=== PATIENT | female | born 1990 | race Caucasian/White ===

== ENCOUNTER 2020-03-24 14:04 | Emergency (ER) | payer OTHER, SELFPAY ==
--- NOTE | 2020-03-24 14:15 | ED.URI ---
HPI - URI/Sore Throat General Chief Complaint: Upper Respiratory Infection Stated Complaint: Sore throat Time Seen by Provider: 03/24/20 14:10 Source: patient and RN notes reviewed Mode of arrival: ambulatory Limitations: no limitations History of Present Illness HPI Narrative: 30-year-old female presents with concern for sore throat. Reports she had a mild sore throat last night, and a mild sore throat this morning. Reports she is currently staying at a rehab facility and gets her temperature checked daily. Reports she had a 99.9 temperature and they required she be seen to have a negative influenza and strep test. Reports she has a cover test scheduled for Friday. Reports when she was admitted to the facility she had a negative coronavirus test. Denies taking any medications for symptoms. She denies cough, shortness of breath, fatigue, body aches. Reports postnasal drip. MD elicited complaint: sore throat Related Data Home Medications Medication Instructions Recorded Confirmed aripiprazole [Abilify] 2 mg PO HS 09/28/19 09/28/19 clonazepam 0.5 mg PO BID PRN 09/28/19 09/28/19 Prozac 03/24/20 chlordiazepoxide HCl 03/24/20 hydroxyzine pamoate 03/24/20 quetiapine 03/24/20 quetiapine 03/24/20 Allergies Allergy/AdvReac Type Severity Reaction Status Date / Time No Known Allergies Allergy Verified 09/28/19 19:05 Review of Systems Review of Systems: Narrative: CONSTITUTIONAL: Denies malaise, chills, sweats. Reports low-grade fever. EYES: Denies visual changes, redness, or discharge. ENT: Denies rhinorrhea, congestion, sinus pain, otalgia. Reports postnasal drip and sore throat. CARDIOVASCULAR: Denies chest pain, palpitations, or edema. RESPIRATORY: Denies cough or dyspnea. GASTROINTESTINAL: Denies abdominal pain, nausea, vomiting, diarrhea SKIN: Denies rash or itching. MUSCULOSKELETAL: Denies myalgia. NEUROLOGIC: Denies headache. All systems reviewed & are unremarkable except as noted in HPI and below PMFSH Past Medical History Medical History (Updated 03/24/20 @ 14:49 by Sharlene Luis NP) Anxiety Depression Endometriosis Comments At time of signature, agree with nursing past medical, surgical, social and family history. There is no relevant family history pertinent to the presenting complaint Exam Narrative: Exam Narrative: GENERAL: Well-appearing, well-nourished, and in no acute distress. HEAD: Normocephalic EYES: PERRLA, conjunctivae clear ENT: Nares clear, turbinates erythematous, clear discharge. Mucous membranes moist. TM pearly prince with sharp light reflex bilaterally; no tragal tenderness. Oropharynx not erythematous without lesions. Tonsils not enlarged and without exudate, no drooling, no hoarseness, no trismus, uvula midline. NECK: Supple. No lymphadenopathy CHEST: Clear to auscultation, breath sounds equal. No wheezing, rhonchi, rales, or stridor. No respiratory distress, speaks in full sentences. HEART: Regular rate and rhythm. No murmur heard. SKIN: Warm, dry, no rash. NEURO: Alert and oriented x3. PSYCH: Normal mood and affect Course Course Emergency Course: Patient is aware of diagnosis, understands and agrees to treatment plan. Anticipatory guidance given. Patient agrees to follow-up as directed and is aware of reasons to seek care at the emergency department. Portions of this record may have been created with voice recognition software Vital Signs Vital signs: Vital Signs Temperature 98.4 F 03/24/20 14:16 Pulse Rate 98 03/24/20 14:16 Respiratory Rate 16 03/24/20 14:16 Blood Pressure 135/73 03/24/20 14:16 Pulse Oximetry 100 03/24/20 14:16 Temperature 98.4 F 03/24/20 14:16 Pulse Rate 98 03/24/20 14:16 Respiratory Rate 16 03/24/20 14:16 Blood Pressure 135/73 03/24/20 14:16 Pulse Oximetry 100 03/24/20 14:16 Reviewed. Patient has been instructed to follow up with her primary care provider within the next week regarding her elevated blood pr
[2020-03-24 14:16] VITALS: BP 135/73; PULSE 98; RESP 16; TEMP 36.9; O2SAT 100
== END 2020-03-24 14:53 | disposition home or self-care (01) ==
PROVIDERS: Emergency Provider Nurse Practitioner
DX: J02.9 Acute pharyngitis, unspecified (principal); F41.9 Anxiety disorder, unspecified; F32.9 Major depressive disorder, single episode, unspecified
CPT/HCPCS: 87081; 87804; 87880; 99213; G0463

== ENCOUNTER 2020-04-30 02:17 | Emergency (ER) | payer OTHER, SELFPAY ==
[2020-04-30 02:20] VITALS: BP 132/86; PULSE 99; RESP 19; TEMP 36.4; O2SAT 100
--- NOTE | 2020-04-30 03:21 | ED.EXTPRO ---
HPI - Extremity Problem General Chief complaint: Extremity Problem,Nontraumatic Stated complaint: finger infection Time Seen by Provider: 04/30/20 02:50 History of Present Illness HPI Narrative: Patient is a 30-year-old female who presents ER with right second digit pain. She reports over the middle phalanx of the radial aspect of the digit she started having pain and swelling in the early hours this morning. Her mom tried to open it with a needle because they thought a splinter was stuck in there. Patient reports yesterday she was attacked by her cat because he got scared by a dog and it scratched her. She does not think that it bit her. She was able to drain pus out of the area today. She has mild limitation in flexion at the PIP due to pain. There is lymphangitic streaking up to the mid forearm. No fevers or chills or sweats. Related Data Home Medications Medication Instructions Recorded Confirmed aripiprazole [Abilify] 2 mg PO HS 09/28/19 09/28/19 clonazepam 0.5 mg PO BID PRN 09/28/19 09/28/19 Prozac 03/24/20 chlordiazepoxide HCl 03/24/20 hydroxyzine pamoate 03/24/20 quetiapine 03/24/20 quetiapine 03/24/20 Allergies Allergy/AdvReac Type Severity Reaction Status Date / Time No Known Allergies Allergy Verified 09/28/19 19:05 Review of Systems Constitutional: Constitutional: Denies chills, Denies fever(s) and Denies weakness Musculoskeletal: Comments: Finger pain Integumentary/Breasts: Skin/Breast: Reports erythema and Reports skin ulcer Neurologic: Denies focal weakness and Denies numbness PMFSH Past Medical History Medical History (Updated 04/30/20 @ 03:25 by Antonio Bravo MD) Anxiety Depression Endometriosis Surgical History Surgical History (Updated 04/30/20 @ 03:23 by Antonio Bravo MD) No pertinent past surgical history Social History Social History Gender identity (if verbalized by the patient): Female Exam Narrative: Exam Narrative: GENERAL: Well-appearing, well-nourished, and in no acute distress. HEAD: Normocephalic, atraumatic. EXTREMITIES: Normal range of motion. No edema. SKIN: Warm, dry, small open wound to the radial aspect of the second digit over the middle phalanx. Seems to have clear fluid draining from it but patient reports pus earlier. Lymphangitic streaking to mid forearm. NEURO: Alert and oriented x3. PSYCH: Normal mood and affect. Course Course Emergency Course: Augmentin here. Discharge with pain medication additional antibiotic. Concern for cat bite with secondary infection. Patient believes her cat is immunized. Patients tetanus is not up to date because she does not believe in vaccinations. Vital Signs Vital signs: Vital Signs Temperature 97.6 F 04/30/20 02:20 Pulse Rate 99 04/30/20 02:20 Respiratory Rate 19 04/30/20 02:20 Blood Pressure 132/86 04/30/20 02:20 Pulse Oximetry 100 04/30/20 02:20 Temperature 97.6 F 04/30/20 02:20 Pulse Rate 99 04/30/20 02:20 Respiratory Rate 19 04/30/20 02:20 Blood Pressure 132/86 04/30/20 02:20 Pulse Oximetry 100 04/30/20 02:20 Discharge Plan Discharge Clinical Impression: Cat bite of index finger, Cellulitis Patient Disposition: Home, Self-Care Condition: Stable Instructions: Antibiotic Form, Animal Bite (ED), Cellulitis (ED) Additional Instructions: Return to the ER if you have increased pain and swelling, you have fever over 100.4 ?F, you cannot move your finger, you have additional concerns. Prescriptions: New hydrocodone-acetaminophen 5-325 mg tablet 1 tablet PO Q6H PRN (Reason: pain) Qty: 12 RF: 0 amoxicillin-pot clavulanate 875-125 mg tablet 1 tablet PO Q12H Qty: 20 RF: 0 No Action clonazepam 0.5 mg Tablet 0.5 mg PO BID PRN (Reason: Anxiety) RF: 0 aripiprazole [Abilify] 2 mg Tablet 2 mg PO HS RF: 0 quetiapine 25 mg tablet RF: 0 quetiapine 100 m
[2020-04-30 03:38] VITALS: BP 127/84; PULSE 80; RESP 19; TEMP 36.7; O2SAT 100
[2020-04-30] MEDS: AMOXICILLIN/CLAVULANATE K 875-125 MG TAB 1 TABLET PO (03:38)
== END 2020-04-30 03:43 | disposition home or self-care (01) ==
PROVIDERS: Emergency Provider Emergency Medicine
DX: S61.250A Open bite of right index finger without damage to nail, initial encounter (principal); L03.011 Cellulitis of right finger; F41.9 Anxiety disorder, unspecified; F32.9 Major depressive disorder, single episode, unspecified; N80.9 Endometriosis, unspecified; W55.01XA Bitten by cat, initial encounter
CPT/HCPCS: 99283; A9270

== ENCOUNTER 2020-08-15 00:30 | Outpatient (CLI) | payer OTHER, SELFPAY ==
[2020-08-15 18:51] LABS: SARS-CoV-2 RNA PCR Negative
== END 2020-08-15 00:31 | disposition home or self-care (01) ==
LOC: ANHCOVIDDT 00:30
PROVIDERS: PCP Emergency Medicine; Visit Provider Obstetrics & Gynecology
DX: Z01.818 Encounter for other preprocedural examination (principal); Z20.828 Contact with and (suspected) exposure to other viral communicable diseases
CPT/HCPCS: 87635; C9803; U0003

== ENCOUNTER 2020-09-28 12:04 | Emergency (ER) | payer OTHER, SELFPAY ==
[2020-09-28 12:16] VITALS: BP 129/97; PULSE 97; RESP 18; TEMP 37.1; O2SAT 100
[2020-09-28 12:17] VITALS: BP 129/97; PULSE 97; RESP 18; TEMP 37.1; O2SAT 100
--- NOTE | 2020-09-28 12:20 | ED.DENTAL ---
HPI - Dental/Oral General Chief complaint: Dental/Oral Stated complaint: tooth pain Source: patient Mode of arrival: ambulatory Limitations: no limitations History of Present Illness HPI Narrative: 30-year-old female presents to [facility] with complaints of pain to right upper and left upper tooth the past 3 to 4 days. Patient has been taking [id number] ibuprofen and Tylenol with minimal relief. Patient denies fever, bodies, chills, vomiting or diarrhea. 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 MD Complaint: tooth pain Teeth map: 1. pain, erythema 2. pain, erythema Onset (ago): day(s) (3) Duration: constant Exacerbating factors: nothing Treatment prior to arrival: other ([id number] Motrin and Tylenol) Related Data Home Medications Medication Instructions Recorded Confirmed fluoxetine 40 mg PO DAILY 08/14/20 08/14/20 gabapentin 100 mg PO DAILY PRN 08/14/20 08/14/20 hydroxyzine pamoate 50 mg PO PRN PRN 08/14/20 08/14/20 quetiapine 25 mg PO BID 08/14/20 08/14/20 quetiapine 100 mg PO HS 08/14/20 08/14/20 Allergies Allergy/AdvReac Type Severity Reaction Status Date / Time No Known Allergies Allergy Verified 08/14/20 12:49 Review of Systems Constitutional: Constitutional: Denies chills, Denies fever(s) and Denies weakness ENT: Denies dysphagia, Denies dizziness, Denies epistaxis, Denies nasal congestion and Denies sore throat Comments: Dental pain Cardiovascular: Cardiovascular: Denies chest pain, Denies rapid heart rate, Denies radiating jaw, neck or arm pain and Denies slow heart rate Gastrointestinal: Gastrointestinal: Denies abdominal pain, Denies constipation, Denies diarrhea, Denies nausea and Denies vomiting Integumentary/Breasts: Skin/Breast: Denies pruritus, Denies rash and Denies skin ulcer Neurologic: Denies dizziness, Denies headache(s), Denies focal weakness, Denies numbness and Denies weakness PMFSH Past Medical History Medical History Anxiety Depression Endometriosis Surgical History Surgical History No pertinent past surgical history Social History Social History Smoking status: Light tobacco smoker Tobacco type: e-cigarettes/vaping Second hand tobacco smoke exposure: No Smoking end date: 09/08/17 Gender identity (if verbalized by the patient): Female Spiritual care concerns: No Comments At time of signature, I agree with nursing past medical, surgical, social and family history. There is no relevant family history pertinent to the presenting complaint. Exam Const: General: healthy appearing, no acute distress and alert Orientation/consciousness: patient oriented x3 HENMT: Head: normal to inspection Mouth: Yes lip normal and Yes moist mucous membranes Teeth and gingiva: abnormal tooth and associated gingiva (pain, mild swelling and erythema noted to upper teeth#4 and #13. ) Throat: uvula midline Other: There is no dental abscess noted. There are veneers in place to front teeth. Resp: Effort & Inspection: normal respiratory effort, not labored and not tachypneic Auscultation: clear to auscultation bilaterally Cardio: Rate: regular rate, not bradycardic and not tachycardic Rhythm: regular rhythm and regular rhythm Heart sounds: no murmurs Skin: General skin exam: normal color Rashes: no rashes Wounds: no wounds Neuro: General: patient oriented x3, moves all extremities and no meningeal signs Psych: Appearance: grossly normal Mental Status: mental status grossly normal Affect: normal affect Attitude: cooperative Thought content: Yes Normal thought content present Course Vital Signs Vital signs: Vital Signs Temperature 37.1 C 09/28/20 12:16 Pulse Rate 97 09/28/20 12:16 Respiratory Rate 18 09/28/20 12:16 Blood
== END 2020-09-28 12:35 | disposition home or self-care (01) ==
PROVIDERS: Emergency Provider Nurse Practitioner Family
DX: K08.89 Other specified disorders of teeth and supporting structures (principal); F41.9 Anxiety disorder, unspecified; F32.9 Major depressive disorder, single episode, unspecified; N80.9 Endometriosis, unspecified
CPT/HCPCS: 99213; G0463

== ENCOUNTER 2021-03-20 15:42 | Emergency (ER) | payer OTHER, SELFPAY ==
[2021-03-20 15:51] VITALS: BP 125/86; PULSE 96; RESP 18; TEMP 36.7; O2SAT 100
[2021-03-20 16:01] VITALS: BP 125/86; PULSE 96; RESP 18; TEMP 36.7; O2SAT 100
--- NOTE | 2021-03-20 16:05 | ED.GENADULT ---
HPI - General Adult General Chief complaint: Dental/Oral Stated complaint: swollen face Time Seen by Provider: 03/20/21 15:51 History of Present Illness HPI narrative: 31 yo female presents to the [facility] with C/O left sided facial swelling that has been going on since around 23 January. Has seen her primary care 3 times and prescribed 3 different antibiotics. Patient states that the last round of antibiotics was prescribed 07 March, took a couple of days and because she felt better stopped taking them. Started taking them again a couple of days ago and the swelling and pain keeps getting worse. Unable to eat. Denies fevers, chest pain, abdominal pain. Related Data Home Medications Medication Instructions Recorded Confirmed quetiapine 100 mg PO HS 08/14/20 03/20/21 clonidine HCl 0.1 mg PO DAILY 03/20/21 03/20/21 tizanidine 4 mg PO PRN PRN 03/20/21 03/20/21 vortioxetine [Trintellix] 10 mg PO DAILY 03/20/21 03/20/21 Allergies Allergy/AdvReac Type Severity Reaction Status Date / Time No Known Allergies Allergy Verified 03/20/21 15:47 Review of Systems Review of Systems: All systems reviewed & are unremarkable except as noted in HPI and below Constitutional: Constitutional: Reports no additional constitutional complaints, Denies chills and Denies fever(s) Eyes: Eyes: Reports no additional eye complaints ENT: Reports as per HPI Comments: Left-sided facial pain and swelling, unable to eat Cardiovascular: Cardiovascular: Reports no additional cardiovascular complaints and Denies chest pain Respiratory: Respiratory: Reports no additional respiratory complaints, Denies cough and Denies dyspnea Gastrointestinal: Gastrointestinal: Reports no additional gastrointestinal complaints Musculoskeletal: Musculoskeletal: Reports no additional musculoskeletal complaints Integumentary/Breasts: Skin/Breast: Reports as per HPI and Reports erythema (Left facial/jaw) Neurologic: Reports system reviewed and no additional complaints, except as documented, Denies vertigo, Denies dizziness, Denies syncope and Denies headache(s) Psychiatric: Psychiatric: Reports no additional psychiatric complaints Allergic/Immunologic: Allergic/Immunologic: Reports no additional allergic/immunologic complaints PMFSH Past Medical History Medical History Anxiety Depression Endometriosis Surgical History Surgical History No pertinent past surgical history Social History Social History Smoking status: Light tobacco smoker Tobacco type: e-cigarettes/vaping Second hand tobacco smoke exposure: No Smoking end date: 09/08/17 Gender identity (if verbalized by the patient): Female Spiritual care concerns: No Comments At the time of my signature, I reviewed and agree with the nursing past medical, surgical, social, and family history. There is no relevant family history pertinent to the patient complaint. Exam Const: General: alert and ill appearing acutely Nutritional Appearance: well nourished Orientation/consciousness: patient oriented x3 Limitations: no limitations Other: Appears in pain HENMT: Head: normal to inspection Ears: hearing grossly normal bilaterally, external ears normal, TM's normal bilaterally and EAC's normal General nose exam: Normal external nose present, Normal nares present and Normal nasal mucous membranes and turbinates present Face and sinus: erythema on the left mandible, submandibular and angle of jaw, fluctuance (Mandible, mastoid, angle of jaw) and Facial tenderness on exam of face and sinuses on the left mandible, submandibular and angle of jaw Mouth: Yes Normal oral and palatal mucosa present, Yes lip normal, Yes tongue normal and Yes moist mucous membranes Teeth and gingiva: other (Multiple cosmetic dental procedures.) Eyes: Conjunctivae: conjunctivae normal Pu
== END 2021-03-20 16:15 | disposition short-term general hospital (02) ==
PROVIDERS: Emergency Provider Nurse Practitioner; PCP Nurse Practitioner Family
DX: R22.0 Localized swelling, mass and lump, head (principal); F41.9 Anxiety disorder, unspecified; F32.9 Major depressive disorder, single episode, unspecified; N80.9 Endometriosis, unspecified
CPT/HCPCS: 99212; G0463

== ENCOUNTER 2021-08-12 18:36 | Emergency (ER) | payer OTHER, SELFPAY ==
[2021-08-12 19:39] VITALS: BP 137/100; PULSE 97; RESP 18; TEMP 36.3; O2SAT 98
[2021-08-12 20:27] LABS: Add Urine Microscopic? YES; Appearance Urine Cloudy (Clear); Bilirubin Urine Negative (Negative); Blood Urine Negative (Negative); Color Urine Yellow (Yellow); Glucose Urine UA Negative (Negative); Ketones Urine Trace mg/dL (Negative); Leukocyte Esterase Ur Negative LEU/UL (Negative); Mucus Urine Heavy /lpf; Nitrate Urine Negative (Negative); Protein Urine Negative (Negative); Specific Grav Ur 1.026 (1.001-1.035); Squamous Epithelial Cell Urine Many /hpf (Few); Urobilinogen Urine Negative mg/dL (<2.0); WBC Urine 0-3 /hpf
--- NOTE | 2021-08-12 20:54 | ED.GENADULT ---
HPI - General Adult General Chief complaint: Unspecified Stated complaint: i think i have an infection in my fingers Time Seen by Provider: 08/12/21 20:02 Source: patient History of Present Illness HPI narrative: Patient presents with multiple complaints. Reports she had her nails done and since then redness on the tips of her fingers that is painful so she is concerned for a infection on her finger. She also reports she had been taking reports with a partner a couple days ago has had vaginal irritation since then as well as white discharge. She denies urinary symptoms denies any fevers denies any vomiting or chest pain. Related Data Home Medications Medication Instructions Recorded Confirmed quetiapine 100 mg PO HS 08/14/20 03/20/21 clonidine HCl 0.1 mg PO DAILY 03/20/21 03/20/21 tizanidine 4 mg PO PRN PRN 03/20/21 03/20/21 vortioxetine [Trintellix] 10 mg PO DAILY 03/20/21 03/20/21 Allergies Allergy/AdvReac Type Severity Reaction Status Date / Time No Known Allergies Allergy Verified 08/12/21 19:45 Review of Systems Review of Systems: CONSTITUTIONAL: Denies fever, chills, or sweats. EYES: Denies visual changes, redness, or discharge. ENT: Denies rhinorrhea, congestion, sore throat, or otalgia. CARDIOVASCULAR: Denies chest pain, palpitations, or edema. RESPIRATORY: Denies cough or dyspnea. GASTROINTESTINAL: Denies abdominal pain, nausea, vomiting, or diarrhea. GENITOURINARY: Denies dysuria or hematuria. SKIN: Denies rash or itching. MUSCULOSKELETAL: Denies back pain, joint pain, or myalgia. NEUROLOGIC: Denies headache, numbness, dizziness, or weakness. PSYCHIATRIC: Denies anxiety or depression. All systems reviewed & are unremarkable except as noted in HPI and below PMFSH Past Medical History Medical History Anxiety Depression Endometriosis Surgical History Surgical History No pertinent past surgical history Social History Social History Smoking status: Light tobacco smoker Tobacco type: e-cigarettes/vaping Second hand tobacco smoke exposure: No Smoking end date: 09/08/17 Gender identity (if verbalized by the patient): Female Spiritual care concerns: No Exam Narrative: GENERAL: Well-appearing, well-nourished, and in no acute distress. HEAD: Normocephalic, atraumatic. EYES: PERRLA and EOMI. ENT: Nares clear, no rhinorrhea or epistaxis. Mucous membranes moist. NECK: Supple. No masses. No JVD ABDOMEN: Soft, nontender, nondistended, normal active bowel sounds. EXTREMITIES: Normal range of motion. No edema. 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 Her exam is unremarkable there are no ulcerations lymphadenopathy or or pustules on external exam. Speculum exam was with dark loose discharge in the vaginal vault with additional right thick discharge. SKIN: Warm, dry, no rash. NEURO: No focal deficits. Alert and oriented x3. PSYCH: Normal mood and affect. Course Vital Signs Vital signs: Vital Signs Temperature 36.3 C L 08/12/21 19:39 Pulse Rate 97 08/12/21 19:39 Respiratory Rate 18 08/12/21 19:39 Blood Pressure 137/100 H 08/12/21 19:39 Pulse Oximetry 98 08/12/21 19:39 Temperature 36.3 C L 08/12/21 19:39 Pulse Rate 98 08/12/21 21:40 Respiratory Rate 18 08/12/21 21:40 Blood Pressure 137/97 H 08/12/21 21:40 Pulse Oximetry 98 08/12/21 21:40 Medical Decision Making [facility] Narrative Medical decision making narrative: H&P as above, vss, pt looks clinically well, exam vaginal discharge on exam and possible early paronychia versus cellulitis on third digit left hand, labs unremarkable, additional labs/img considered, symptomatic relief available as needed, on reevaluation pt continu
[2021-08-12 21:07] LABS: Pregnancy On Board Control Positive; Urine Pregnancy Test Negative
[2021-08-12] MEDS: IBUPROFEN 600 MG TABLET PO (21:18)
[2021-08-12] MEDS: cefTRIAXone 1 GM VIAL 0.5 GM IM (21:20)
[2021-08-12] MEDS: LIDOCAINE HCL 1% LOCAL INJ 20 ML VIAL (21:20)
[2021-08-12 21:40] VITALS: BP 137/97; PULSE 98; RESP 18; O2SAT 98
== END 2021-08-12 21:40 | disposition home or self-care (01) ==
PROVIDERS: Emergency Provider Emergency Medicine; PCP Nurse Practitioner Family
DX: N89.8 Other specified noninflammatory disorders of vagina (principal); L03.012 Cellulitis of left finger; F41.9 Anxiety disorder, unspecified; F32.9 Major depressive disorder, single episode, unspecified; N80.9 Endometriosis, unspecified
CPT/HCPCS: 81001; 81025; 87070; 87491; 87591; 87808; 96372; 99284; A9270; J0696

== ENCOUNTER 2023-04-10 11:20 | Emergency (ER) | payer OTHER, SELFPAY ==
--- NOTE | ~2023-04-10 | XR_ITS ---
EXAMINATION: XR chest 2V DATE: 04/10/2023 11:54 INDICATION: Pain and protrusion at the right upper anterior chest wall TECHNIQUE: PA and lateral views of the chest were obtained. COMPARISON: Chest radiograph dated 08/11/2005 FINDINGS: The lungs remain clear with no focal airspace opacities, pulmonary edema, pleural effusion or pneumot horax. The cardiomediastinal silhouette is normal. 19 degrees thoracic dextroscoliosis. IMPRESSION: 1. No acute cardiopulmonary disease. Reviewed, dictated and finalized at location A.
--- NOTE | 2023-04-10 11:25 | ECG_ITS ---
Measurements Intervals [place] Rate: 61 P: 71 LA: 110 QRS: 56 QRSD: 85 T: 43 QT: 431 QTc: 437 Interpretive Statements SINUS RHYTHM WITH SHORT LA INTERVAL WITHIN NORMAL LIMITS NO PREVIOUS ECG AVAILABLE FOR COMPARISON Electronically Signed On 04-11-2023 12:44:02 CDT by William Cobian M.D.
[2023-04-10 11:46] LABS: Basophils Percent Auto 0.7 % (0.2-1.2); Eosinophils Percent Auto 0.7 % (0-4.4); Hematocrit 39.1 % (37.0-47.0); Hemoglobin 13.1 g/dL (12.0-15.0); Immature Granulocyte Absolute 0.01 K/mm3 (0.00-0.031); Immature Granulocyte Percent A 0.2 % (0-0.5); Lymphocytes Absolute Auto 1.84 K/mm3 (0.9-3.2); Lymphocytes Percent Auto 31.7 % (18.3-44.2); Mean Corpuscular HGB Conc 33.5 g/dl (32-36); Mean Corpuscular Volume 89.7 fl (80-100); Mean Platelet Volume 8.9 fl (7.4-10.4); Monocytes Absolute Auto 0.4 K/mm3 (0.1-0.6); Monocytes Percent Auto 6.4 % (2.6-8.5); Neutrophils Absolute Auto 3.5 K/mm3 (1.3-6.7); Neutrophils Percent Auto 60.3 % (45.5-73.1); Platelet Count Result 309 k/mm3 (150-375); Red Blood Count 4.36 M/mm3 (4.2-5.4); Red Cell Distribution Width 12.5 % (11.5-14.5); White Blood Count 5.8 K/mm3 (4.5-10.0)
[2023-04-10 11:55] VITALS: BP 125/89; PULSE 86; RESP 16; TEMP 36.1; O2SAT 100
[2023-04-10 11:55] LABS: Alanine Aminotransferase 19 U/L (6-35); Albumin Level 4.5 g/dL (3.5-5.1); Alkaline Phosphatase 68 U/L (38-126); Anion Gap 6 mmol/L (8-16); Aspartate Amino Transferase 26 U/L (14-36); Bilirubin,Total 0.4 mg/dL (0.2-1.3); Blood Urea Nitrogen 12 mg/dL (7-17); Calcium 8.7 mg/dL (8.4-10.2); Carbon Dioxide 30 mmol/L (22-30); Chloride 102 mmol/L (98-107); Estimated Glomerular Filt Rate > 60; Glucose 73 mg/dL (65-110); Lipase 164 U/L (23-300); Potassium 3.3 mmol/L (3.4-5.0); Sodium 138 mmol/L (137-145)
[2023-04-10 11:58] LABS: INR 0.9; Partial Thromboplastin Time 27.2 SECONDS (22.3-36.8); Prothrombin Time 12.7 Seconds (11.1-14.7)
[2023-04-10 12:07] LABS: Troponin I < 0.012 ng/mL (0.000-0.034)
[2023-04-10 15:09] LABS: Troponin I < 0.012 ng/mL (0.000-0.034)
--- NOTE | 2023-04-10 15:17 | ED.CHESTPAIN ---
HPI - Chest Pain General Chief Complaint: Chest Pain Stated Complaint: chest pain x 2 days Time Seen by Provider: 04/10/23 15:07 Source: patient Mode of arrival: ambulatory Limitations: no limitations History of Present Illness HPI narrative: This is a 33 year old female that presents to the ER for chest pain. Reports she chronically has issues with chest pain. Reports it is worsened over the last couple of days. It is a sharp pain. Associated with difficulty breathing. The pain is worse with deep breathing. Denies fever, cough, or lower extremity edema. Related Data Home Medications Medication Instructions Recorded Confirmed quetiapine 100 mg tablet 100 mg PO HS 08/14/20 03/20/21 clonidine HCl 0.1 mg tablet 0.1 mg PO DAILY 03/20/21 03/20/21 tizanidine 4 mg tablet 4 mg PO PRN PRN Pain 03/20/21 03/20/21 vortioxetine 10 mg tablet 10 mg PO DAILY 03/20/21 03/20/21 (Trintellix) Allergies Allergy/AdvReac Type Severity Reaction Status Date / Time No Known Allergies Allergy Verified 04/10/23 11:21 Review of Systems Review of Systems: CONSTITUTIONAL: Denies fever CARDIOVASCULAR: Reports chest pain. Denies palpitations, or edema. RESPIRATORY: Denies cough or dyspnea. PSYCHIATRIC: Reports anxiety and depression. All systems reviewed & are unremarkable except as noted in HPI and below PMFSH Past Medical History Medical History Anxiety Depression Endometriosis Surgical History Surgical History No pertinent past surgical history Social History Social History Smoking status: Light tobacco smoker Tobacco type: e-cigarettes/vaping Second hand tobacco smoke exposure: No Smoking end date: 09/08/17 Living arrangements: with family Gender identity (if verbalized by the patient): Female Spiritual care concerns: No Exam Narrative: GENERAL: Well-appearing, well-nourished, and in no acute distress. HEAD: Normocephalic, atraumatic. EYES: EOMI. CHEST: Clear to auscultation. No respiratory distress. No wheezes rales or rhonchi HEART: Regular rate and rhythm. No murmur heard. Normal peripheral pulses. EXTREMITIES: Normal range of motion. No edema. SKIN: Warm, dry, no rash. NEURO: No focal deficits. Alert and oriented x3. PSYCH: Normal mood and affect Course Course Emergency Course: Patient updated on work-up and agrees with plan of care Vital Signs Vital signs: Vital Signs Temperature 96.9 F L 04/10/23 11:55 Pulse Rate 86 04/10/23 11:55 Respiratory Rate 16 04/10/23 11:55 Blood Pressure 125/89 04/10/23 11:55 Pulse Oximetry 100 04/10/23 11:55 Oxygen Delivery Room Air 04/10/23 11:55 Temperature 96.9 F L 04/10/23 11:55 Pulse Rate 74 04/10/23 15:19 Respiratory Rate 18 04/10/23 15:19 Blood Pressure 131/79 04/10/23 15:19 Pulse Oximetry 99 04/10/23 15:19 Oxygen Delivery Room Air 04/10/23 15:19 MDM - Chest Pain MDM Narrative Medical decision making narrative: Patient presents to the emergency department for chest pain that is acute on chronic. Her vitals are stable. She is in no acute distress. CBC without concerning findings. Metabolic panel with mild hypokalemia. Patient given a dose of potassium in the ED. EKG without acute ST changes and baseline and 3-hour troponin are negative. Her D-dimer is not elevated. Chest x-ray without acute cardiopulmonary abnormality. Her heart score is 0. Patient was updated on work-up. Instructed to have close follow-up with primary provider. She was given warnings to return to the ER Differential Diagnosis Differential diagnosis: Likely stable angina, unstable angina pectoris, atypical chest pain and costochondritis Lab Data Attestation: I reviewed the patient's lab results. 04/10/23 11:37 04/10/23 11:37 Labs:
[2023-04-10 15:19] VITALS: BP 131/79; PULSE 74; RESP 18; O2SAT 99
[2023-04-10 15:29] LABS: Magnesium 2.2 mg/dL (1.6-2.3)
[2023-04-10 15:29] LABS: D Dimer < 0.27 ug/mL (<0.48)
[2023-04-10] MEDS: ACETAMINOPHEN 500 MG TABLET 1000 MG PO (16:05)
[2023-04-10] MEDS: POTASSIUM CHLORIDE 20 MEQ ER TABLET 40 MEQ PO (16:05)
[2023-04-10] MEDS: KETOROLAC 15 MG/ML VIAL (*BKC) IV PUSH (16:15)
[2023-04-10 16:45] VITALS: BP 128/84; PULSE 77; RESP 16; O2SAT 100
[2023-04-10 17:30] VITALS: BP 129/93; PULSE 75; RESP 16; O2SAT 98
[2023-04-10 18:07] VITALS: BP 123/81; PULSE 72; RESP 16; O2SAT 100
== END 2023-04-10 18:17 | disposition home or self-care (01) ==
PROVIDERS: General Practice; Emergency Provider Physician Assistant; PCP Nurse Practitioner Family
DX: R07.89 Other chest pain (principal); E87.6 Hypokalemia; N80.9 Endometriosis, unspecified; F41.9 Anxiety disorder, unspecified; F32.A Depression, unspecified; Z87.891 Personal history of nicotine dependence
CPT/HCPCS: 36415; 71046; 80053; 81025; 83690; 83735; 84484; 85025; 85380; 85610; 85730; 93005; 96374; 99284; A9270; J1885